=== PATIENT | male | born 1960 | race Caucasian/White ===

== ENCOUNTER 2025-02-07 14:16 | Emergency (ER) | payer OTHER ==
[~2025-02-07] VITALS: Ht 172.7 cm; Wt 88.0 kg
[2025-02-07 14:18] VITALS: BP 127/78; TEMP 98.3; O2SAT 98
[2025-02-07 14:52] LABS: PLATELET COUNT (AUTO) 208 K/uL (150-450); RED BLOOD CELL COUNT(AUTO) 4.64 MIL/uL (4.5-6.0); RED CELL DISTRIBUTION WIDTH 15.2 % (11.5-15.0); WHITE BLOOD COUNT (AUTO) 6.9 K/uL (4.3-11.0)
[2025-02-07] MEDS ORDERED: ONDANSETRON HCL/PF 4 MG/2 ML VIAL ONE (14:52)
[2025-02-07] MEDS ORDERED: MORPHINE SULFATE INJ 4 MG/ML DISP.SYRIN ONE (14:52)
[2025-02-07 15:00] LABS: CALCIUM, SERUM 8.3 mg/dL (8.5-10.1); CREATININE 0.7 mg/dL (0.6-1.3); SODIUM SERUM 138.0 mmol/L (136-145); UREA NITROGEN, BLOOD 21.0 mg/dL (7-18)
[2025-02-07] MEDS: MORPHINE SULFATE INJ 2 MG/ML DISP.SYRIN IV ONE (15:05)
[2025-02-07] MEDS: ONDANSETRON HCL/PF 4 MG/2 ML VIAL IVP ONE (15:05)
[2025-02-07 15:06] LABS: ASPARTATE AMINOTRANSFERASE 12.0 U/L (15-37); TOTAL PROTEIN, SERUM 6.8 g/dL (6.4-8.2)
[2025-02-07] MEDS: IV NS 0.9% 1,000 ML BAG IV ONE (16:00)
== END 2025-02-07 18:50 ==
LOC: ER 14:20
DX: K43.9 Ventral hernia without obstruction or gangrene (principal); R10.30 Lower abdominal pain, unspecified; R11.0 Nausea; R00.2 Palpitations
CPT/HCPCS: 99284; 74176; 96360; 93005; 85025; 80048; 83690; 80076; 36415; J7030; J2270; J2405